=== PATIENT | female | born 1975 ===

== ENCOUNTER → 2020-06-28 | Outpatient (CLI) | payer OTHER ==
[~2020-06-28] MED LIST: HYDACE5 PO; SULTRIDS PO
== END ==
LOC: LAB SHORT 13:49 → LAB 13:49
PROVIDERS: Nurse Practitioner Family
DX: Z12.4 Encounter for screening for malignant neoplasm of cervix (principal)
CPT/HCPCS: 87070; 87205; G0145

== ENCOUNTER 2025-06-16 09:25 | Day surgery (SDC) | payer OTHER | END 2025-06-16 23:00 | disposition home or self-care (01) | LOC: RAD 09:25 | DX: M25.852 Other specified joint disorders, left hip (principal); M25.552 Pain in left hip; M25.851 Other specified joint disorders, right hip | CPT/HCPCS: 20610; 73722; 77002; A9577; Q9967 ==